=== PATIENT | female | born 1950 | race Caucasian/White ===

== ENCOUNTER 2016-09-03 13:03 | Emergency (ER) | payer OTHER ==
[~2016-09-03] VITALS: Ht 157.5 cm; Wt 62.2 kg
[~2016-09-03 13:03] MED LIST: Augmentin PO; Fosamax PO; Lumigan 0.01% Ophth BOTH EYES; MOTRIN600 MG PO; PEPCID40 MG PO; PREDNISONE50 MG PO; Pravachol PO; Vicodin,Norco 5/325 PO; Voltaren PO; Zantac PO
[2016-09-03 16:21] VITALS: BP 122/64
== END 2016-09-03 16:22 | disposition home or self-care (01) ==
LOC: EME 13:03
DX: S06.0X9A Concussion with loss of consciousness of unspecified duration, initial encounter (principal); S00.12XA Contusion of left eyelid and periocular area, initial encounter; S00.212A Abrasion of left eyelid and periocular area, initial encounter; W01.198A Fall on same level from slipping, tripping and stumbling with subsequent striking against other object, initial encounter; E78.5 Hyperlipidemia, unspecified
CPT/HCPCS: 70450; 99281; 99285